=== PATIENT | male | born 2000 | race Two or more races ===

== ENCOUNTER 2024-07-15 02:21 | Emergency (ER) | payer OTHER ==
[~2024-07-15] VITALS: Ht 175.3 cm; Wt 70.3 kg
[2024-07-15 02:31] VITALS: BP 125/78; TEMP 98.1; O2SAT 98
== END 2024-07-15 03:00 ==
LOC: ER 02:23
DX: Z02.89 Encounter for other administrative examinations (principal); J45.909 Unspecified asthma, uncomplicated; F10.129 Alcohol abuse with intoxication, unspecified; V47.5XXA Car driver injured in collision with fixed or stationary object in traffic accident, initial encounter; Y93.89 Activity, other specified; Y92.89 Other specified places as the place of occurrence of the external cause; Y99.8 Other external cause status; Y90.9 Presence of alcohol in blood, level not specified